=== PATIENT | female | born 1960 | race Caucasian/White ===

== ENCOUNTER 2017-10-14 16:21 | Emergency (ER) | payer OTHER ==
[~2017-10-14] VITALS: Ht 172.7 cm; Wt 89.2 kg
[2017-10-14 16:29] VITALS: BP 113/76
== END 2017-10-14 19:24 | disposition home or self-care (01) ==
LOC: ED 19:18
DX: S46.111A Strain of muscle, fascia and tendon of long head of biceps, right arm, initial encounter (principal); F17.200 Nicotine dependence, unspecified, uncomplicated; M79.661 Pain in right lower leg; X58.XXXA Exposure to other specified factors, initial encounter; Y93.89 Activity, other specified; Y92.89 Other specified places as the place of occurrence of the external cause; Y99.8 Other external cause status
CPT/HCPCS: 99284